=== PATIENT | female | born 1985 | race Caucasian/White ===

== ENCOUNTER 2020-06-23 11:28 | Day surgery (SDC) | payer OTHER ==
[~2020-06-23] VITALS: Ht 160 cm; Wt 88.5 kg
[2020-06-23] MEDS ORDERED: CEFAZOLIN 2 GM IVPB PREMIX 50 ML IV ONE (13:25)
[2020-06-23] MEDS ORDERED: METOCLOPRAMIDE HCL 10 MG/2 ML VIAL IVP ONE (13:25)
[2020-06-23] MEDS ORDERED: LR 1,000 ML IV.SOLN IV ONE (13:25)
[2020-06-23] MEDS ORDERED: NS IRRIG SOLN 1000 ML IR ONE (13:25)
[2020-06-23] MEDS ORDERED: LR 1,000 ML IV SCH (14:15)
[2020-06-23] MEDS ORDERED: ONDANSETRON HCL 4 MG/2 ML VIAL IVP PRN (14:15)
[2020-06-23 14:35] VITALS: BP_SYST 99
== END 2020-06-23 20:05 | disposition home or self-care (01) ==
LOC: SDS 11:28 → SMU 11:31 → SPU 15:35 → SDS 20:05
PROVIDERS: ATTEND Specialist
DX: O34.32 Maternal care for cervical incompetence, second trimester (principal); Z3A.21 21 weeks gestation of pregnancy
CPT/HCPCS: 36415; 59320; 87070 ×2; 87075; 87426; J0690; J2765; J7120

== ENCOUNTER 2020-06-25 16:57 | Observation (INO) | payer OTHER ==
[~2020-06-25] VITALS: Ht 160 cm; Wt 88.5 kg
== END 2020-06-25 18:15 | disposition home or self-care (01) ==
LOC: SPU 16:57
PROVIDERS: ADMIT Specialist; ATTEND Specialist
DX: O62.9 Abnormality of forces of labor, unspecified (principal); Z3A.21 21 weeks gestation of pregnancy
CPT/HCPCS: G0378